=== PATIENT | male | born 1970 | race Caucasian/White ===

== ENCOUNTER 2019-02-22 08:44 | Emergency (ER) | payer OTHER ==
[~2019-02-22] VITALS: Ht 162.6 cm; Wt 69.4 kg
[2019-02-22 08:52] VITALS: BP 129/79
--- NOTE | 2019-02-22 09:28 | NUR ---
48 Y/O MALE C/O L LOWER SIDE PAIN 9/10 X STARTING TODAY. PT REPORTS DYSURIA. PT REPORTS VOMITING. PT STATES HE GOT A SUDDEN SHARP, CONTINUOUS PAIN IN HIS LOWER LEFT SIDE. HX: DENIES RX: DENIES Allergies: DENIES
[2019-02-22] MEDS ORDERED: KETOROLAC 30 MG/ML VIAL IVP ONE (09:35)
[2019-02-22] MEDS ORDERED: NACL 0.9% 500 ML IV ONE (09:35)
[2019-02-22] MEDS ORDERED: ONDANSETRON 4 MG/2 ML VIAL IVP ONE (09:35)
--- NOTE | 2019-02-22 10:09 | NUR ---
PT WENT TO RADIOLOGY AT THIS TIME.
[2019-02-22 10:59] LABS: HEMOGLOBIN 14.3 g/dL (12.0-18.0); MEAN CORPUSCULAR HEMOGLOBIN 29 pg (27-31); MEAN CORPUSCULAR HGB CONC 33 g/dL (33-37); MEAN CORPUSCULAR VOLUME 87.8 fL (80-94); PLATELET COUNT (AUTO) 223 K/uL (140-450); RED CELL DISTRIBUTION WIDTH 13.6 % (11.6-13.7); WHITE BLOOD COUNT (AUTO) 16.1 K/uL (4.8-10.8)
[2019-02-22 11:07] LABS: ANION GAP 10.9 (8-16); CARBON DIOXIDE 27.3 mmol/L (21-32); POTASSIUM 4.2 mmol/L (3.5-5.1)
[2019-02-22 11:16] LABS: ALBUMIN 3.4 g/dL (3.4-5.0); TOTAL BILIRUBIN 0.4 mg/dL (0.0-1.0)
[2019-02-22] MEDS ORDERED: MORPHINE SULFATE 2 MG/ML SYR IVP ONE (11:25)
[2019-02-22 11:28] LABS: LYMPHOCYTES % (MANUAL) 9 % (20-46); MONOCYTES % (MANUAL) 2 % (5-12)
[2019-02-22 11:58] LABS: APPEARANCE,URINE CLOUDY (CLEAR); BILIRUBIN,URINE NEGATIVE (NEGATIVE); BLOOD, URINE 2+ (NEGATIVE); COLOR,URINE YELLOW (YELLOW); LEUKOCYTE ESTERASE ,URINE NEGATIVE (NEGATIVE); NITRITE, URINE NEGATIVE (NEGATIVE); PH,URINE 8.5 (5.0-9.0); UGLUCOSE NEGATIVE (NEGATIVE)
[2019-02-22 12:11] LABS: RBC,URINE 11-20 (MOD) /HPF (0-5); WBC,URINE 0-5 /HPF (0-5)
[2019-02-22 12:18] VITALS: BP 115/71
--- NOTE | 2019-02-22 12:18 | NUR ---
Patient discharged with v/s stable. Written and verbal after care instructions given and explained. Patient alert, oriented and verbalized understanding of instructions. Ambulatory with steady gait. All questions addressed prior to discharge. ID band removed. Patient advised to follow up with PMD. Rx of TRAMADOL, MOTRIN, AND ZOFRAN given. Patient educated on indication of medication including possible reaction and side effects. Opportunity to ask questions provided and answered.
== END 2019-02-22 12:18 | disposition home or self-care (01) ==
LOC: MED 08:44
DX: N20.0 Calculus of kidney (principal); F17.200 Nicotine dependence, unspecified, uncomplicated; Z88.0 Allergy status to penicillin
CPT/HCPCS: 36415; 74176; 80053; 81001; 84484; 85025; 93005; 96361; 96374; 96375; 99284; J1885; J2270; J2405; J7030